=== PATIENT | male | born 1945 | race Caucasian/White ===

== ENCOUNTER → 2018-02-23 10:10 | Outpatient (POV) | payer MEDICARE, OTHER, SELFPAY | PROVIDERS: Visit Provider Dermatology | DX: Z00.00 Encounter for general adult medical examination without abnormal findings (principal) ==

== ENCOUNTER → 2018-03-16 10:10 | Outpatient (POV) | payer MEDICARE, OTHER, SELFPAY | PROVIDERS: Visit Provider Dermatology | DX: Z00.00 Encounter for general adult medical examination without abnormal findings (principal) ==

== ENCOUNTER → 2018-07-21 09:10 | Outpatient (CLI) | payer MEDICARE, OTHER, SELFPAY ==
--- NOTE | 2018-07-21 09:27 | US_ITS ---
US abdomen limited History:Right upper quadrant pain Ordering Physician:Romaine Cornejo MD Patient Age: 72 years Comparison:None Findings: Pancreas:Unremarkable. No obvious mass or abnormal fluid collection. No ductal dilatation Liver:Unremarkable. No obvious mass or abnormal fluid collection. No ductal dilatation Right Kidney:Unremarkable. Normal size and echogenicity. No hydronephrosis Gallbladder:No gallstones, gallbladder wall thickening, pericholecystic fluid, or biliary dilatation. There is a small hyperechoic focus within the lower aspect of the body of the gallbladder. There may be some posterior acoustical shadowing suggesting that this could be a small adherent stone versus a polyp. The gallbladder is distended measuring nearly 13 cm x 2.6 cm IMPRESSION: 1. Distended gallbladder with small polyp versus small adherent stone 2. Otherwise negative right upper quadrant ultrasound
== END ==
PROVIDERS: PCP Family Medicine; Visit Provider Family Medicine
DX: R10.11 Right upper quadrant pain (principal)
CPT/HCPCS: 76705

== ENCOUNTER → 2018-07-30 10:22 | Outpatient (CLI) | payer MEDICARE, OTHER, SELFPAY ==
--- NOTE | 2018-07-30 10:33 | NM_ITS ---
NM hepatobiliary w pharm HISTORY: Right upper quadrant pain, abnormal gallbladder ultrasound suggesting stone or polyp ITS.REASON: ABN GB IMAGING ORDERING PHYSICIAN: Romaine Cornejo MD PATIENT AGE: 72 years COMPARISON: 07/21/2018 DOSE: 7.69 MCI TC 99 Choletec 2.8MCG CCK INJ into LT ANT FINDINGS: Homogeneous activity is present within the hepatic parenchyma. Activity is present in the gallbladder by 45 minutes. Activity is present in the small bowel by 10 minutes. The gallbladder ejection fraction is calculated to be 89% The patient did not report pain or other symptoms during CCK infusion. IMPRESSION: Unremarkable hepatobiliary scan and gallbladder ejection fraction. No evidence of common or cystic duct obstruction with normal gallbladder ejection fraction
== END ==
PROVIDERS: PCP Family Medicine; Visit Provider Family Medicine
DX: R93.2 Abnormal findings on diagnostic imaging of liver and biliary tract (principal)
CPT/HCPCS: 78227; A9537; J2805

== ENCOUNTER → 2018-11-29 14:41 | Outpatient (CLI) | payer MEDICARE, OTHER, SELFPAY ==
--- NOTE | 2018-11-29 14:51 | XR_ITS ---
PROCEDURE: XR RIBS LT MIN 3V W CXR1V CLINICAL INDICATION: LT ANTERIOR CHEST WALL PAIN Fall with left anterior rib pain COMPARISON: LDCTLCAS LDCT FOR LUNG CA SCREEN from 06/17/2016 FINDINGS: There is cardiomegaly without failure. Nondisplaced fractures are present involving the anterior lateral aspect of the left 5th 6th and 7th ribs. There is mild atelectatic change in the lung bases. No obvious pneumothorax. IMPRESSION: Nondisplaced fractures of the left 5th 6th and 7th ribs anterior laterally Dictated by: Jose Cruz Donovan MD 11/29/2018 15:33 Electronically signed by Jose Cruz Donovan MD in [facility] 11/29/2018 15:33
== END ==
PROVIDERS: PCP Family Medicine; Visit Provider Family Medicine
DX: R07.89 Other chest pain (principal)
CPT/HCPCS: 71101

== ENCOUNTER → 2019-08-26 08:11 | Outpatient (CLI) | payer MEDICARE, OTHER, SELFPAY ==
--- NOTE | 2019-08-26 08:15 | US_ITS ---
PROCEDURE: US AORTA CLINICAL INDICATION: TOBACCO USE DISORDER COMPARISON: No exams were available for comparison FINDINGS: No evidence of abdominal aortic aneurysm. Proximal common iliacs have an unremarkable appearance. IMPRESSION: Negative for abdominal aortic aneurysm Dictated by: Jose Cruz Donovan MD 08/26/2019 18:39 Electronically signed by Jose Cruz Donovan MD in [facility] 08/26/2019 18:39
--- NOTE | 2019-08-26 08:51 | CA_ITS ---
APPROVED REPORT Tip Finisher: Ethel Paez RVT Laterality: Bilateral Study Quality: Good Indications: memory loss Risk Factors Hypertension: Hyperlipidemia Doppler Spectral Velocity Analysis ECA (R) 74.30/15.20 cm/s ECA (L) 61.60/12.70 cm/s dICA (R) 46.90/17.30 cm/s dICA (L) 47.20/18.30 cm/s Heather (R) 34.30/17.80 cm/s Heather (L) 37.00/20.00 cm/s pICA (R) 29.70/11.50 cm/s pICA (L) 35.40/16.90 cm/s dCCA (R) 50.40/14.40 cm/s dCCA (L) 46.50/16.00 cm/s pCCA (R) 59.40/20.20 cm/s pCCA (L) 78.90/18.20 cm/s Vert (R) 25.50/10.50 cm/s Vert (L) 37.00/16.70 cm/s ICA/CCA 0.93 ICA/CCA 1.01 Findings Study suggests less than 20% stenosis of the right and left internal cartoid arteries. Antegrade flow seen bilateral vertebral arteries. Conclusion No increased velocities to suggest hemodynamically significant stenosis in either internal carotid artery. Electronically signed by : Jose Cruz Donovan MD 08/26/2019 17:45:49
== END ==
PROVIDERS: PCP Family Medicine; Visit Provider Family Medicine
DX: Z13.6 Encounter for screening for cardiovascular disorders (principal); F17.200 Nicotine dependence, unspecified, uncomplicated; R41.3 Other amnesia; R09.89 Other specified symptoms and signs involving the circulatory and respiratory systems
CPT/HCPCS: 76770; 93880

== ENCOUNTER → 2020-07-09 14:28 | Outpatient (CLI) | payer MEDICARE, OTHER, SELFPAY ==
--- NOTE | 2020-07-09 14:35 | XR_ITS ---
PROCEDURE: XR CHEST 2V CLINICAL HISTORY: COUGH COMPARISON: CR XR RIBS LT MIN 3V W CXR1V from 11/29/2018 FINDINGS: There is cardiomegaly without failure. There is mild left apical pleural thickening Degenerative changes are present in the left shoulder. There has been a prior right humeral head prosthesis placement. Degenerative changes are present in the thoracic spine. IMPRESSION: Cardiomegaly. No change with no acute finding. Dictated by: Jose Cruz Donovan MD 07/09/2020 14:59 Jose Cruz Donovan MD in [facility] 07/09/2020 14:59
== END ==
PROVIDERS: PCP Family Medicine; Visit Provider Family Medicine
DX: R05 Cough (principal)
CPT/HCPCS: 71046

== ENCOUNTER → 2021-09-30 16:33 | Outpatient (CLI) | payer MEDICARE, OTHER, SELFPAY ==
--- NOTE | 2021-09-30 16:33 | MR_ITS ---
PROCEDURE INFORMATION: Exam: MR Lumbar Spine Without Contrast Exam date and time: 09/30/2021 5:01 PM Age: 76 years old Clinical indication: Low back pain; Prior surgery; Surgery date: 6+ months; Additional info: Back pain, fall, l1/l2 compression changes on xray. Prior back surgery in 83. Lbp. Bilateral leg solis, numbness, and tingling. Symptoms [id number]. TECHNIQUE: Imaging protocol: Magnetic resonance imaging of the lumbar spine without contrast. COMPARISON: NM Gallbladder EF 07/30/2018 11:54 AM FINDINGS: Bones/joints: Lumbarization of the S1 vertebra is present. There is marked bone marrow edema within the L1 and L2 vertebra. Fracture lines through both vertebra are also present. The findings are compatible with acute/subacute compression fractures. There is minimal L1 vertebral body height loss and mild L2 vertebral body height loss. No significant retropulsion into the spinal canal is present. There is straightening of the normal lumbar lordosis. Spinal cord: The conus medullaris terminates at the L2 level. There is no evidence of arachnoiditis or cauda equina compression. T11-T12: There is minimal diffuse circumferential disc bulging and moderate facet arthropathy. This is causing moderate left and severe right foraminal stenosis. There is no significant spinal canal stenosis. T12-L1: There is minimal diffuse circumferential disc bulging and mild facet arthropathy. This is causing mild bilateral foraminal stenosis. There is no significant spinal canal stenosis. L1-L2: There is moderate diffuse circumferential disc bulging, circumferential osteophytic ridging, mild facet arthropathy, thickening of the ligamentum flavum, prominent posterior epidural fat, and congenitally shortened pedicles. This is causing moderate spinal canal stenosis and moderate bilateral foraminal stenosis. L2-L3: There is mild diffuse circumferential disc bulging, circumferential osteophytic ridging, facet arthropathy, and congenitally shortened pedicles. This is causing mild spinal canal stenosis and moderate bilateral foraminal stenosis. L3-L4: There is mild diffuse circumferential disc bulging, circumferential osteophytic ridging, thickening of the ligamentum flavum, mild facet arthropathy, and congenitally shortened pedicles. This is causing mild spinal canal stenosis and moderate bilateral foraminal stenosis. L4-L5: There is disc dehydration, severe disc space narrowing, mild diffuse circumferential disc bulging, right foraminal and extraforaminal osteophytic ridging, thickening of the ligamentum flavum, and mild facet arthropathy. This is causing mild spinal canal stenosis, moderate narrowing of the subarticular recesses, moderate right foraminal stenosis, and mild left foraminal stenosis. L5-S1: There is disc dehydration, severe disc space narrowing, circumferential osteophytic ridging, and moderate facet arthropathy. A left hemilaminectomy defect is noted. There is no spinal canal stenosis. Severe left and moderate/severe right foraminal stenosis is present. Soft tissues: Subcutaneous edema is present in the lower back. Mild paraspinous edema is noted around the L1 and L2 levels. IMPRESSION: 1. Acute/subacute compression fractures at L1 and L2 2. Degenerative changes of the lumbar spine as discussed above
== END ==
PROVIDERS: PCP Family Medicine; Visit Provider Nurse Practitioner
DX: M54.50 Low back pain, unspecified (principal); W19.XXXA Unspecified fall, initial encounter; S32.010A Wedge compression fracture of first lumbar vertebra, initial encounter for closed fracture; S32.020A Wedge compression fracture of second lumbar vertebra, initial encounter for closed fracture
CPT/HCPCS: 72148; 76376

== ENCOUNTER → 2021-10-18 | Outpatient (CLI) | payer MEDICARE, OTHER, SELFPAY ==
[2021-10-18 15:19] LABS: Prothrombin Time 37.1 seconds (10.1-12.5)
== END ==
PROVIDERS: PCP Family Medicine; Visit Provider Family Medicine
DX: I48.20 Chronic atrial fibrillation, unspecified (principal); Z51.81 Encounter for therapeutic drug level monitoring; Z79.01 Long term (current) use of anticoagulants
CPT/HCPCS: 85610

== ENCOUNTER → 2021-11-18 13:13 | Outpatient (CLI) | payer MEDICARE, OTHER, SELFPAY ==
[2021-11-18 13:11] LABS: INR 1.68 (0.9-1.1); Prothrombin Time 17.6 seconds (10.1-12.5)
== END ==
PROVIDERS: PCP Family Medicine; Visit Provider Family Medicine
DX: Z79.01 Long term (current) use of anticoagulants (principal); Z51.81 Encounter for therapeutic drug level monitoring
CPT/HCPCS: 85610

== ENCOUNTER → 2021-12-23 13:20 | Outpatient (CLI) | payer MEDICARE, OTHER, SELFPAY ==
[2021-12-23 13:20] LABS: INR 1.29 (0.9-1.1); Prothrombin Time 13.7 seconds (10.1-12.5)
[2021-12-23 14:20] LABS: Alanine Aminotransferase 8 U/L (12-78); Albumin Level 3.5 g/dl (3.5-5.0); Albumin/Globulin Ratio 1.5 (1.1-1.8); Alkaline Phosphatase 95 U/L (38-126); Anion Gap 15.4 mEq/L (5-15); Aspartate Amino Transferase 21 U/L (17-59); Bilirubin,Total 0.8 mg/dl (0.2-1.3); Blood Urea Nitrogen 17 mg/dl (9-20); Calcium 9.5 mg/dl (8.4-10.2); Carbon Dioxide 29 mmol/L (22.0-30.0); Chloride 100 mmol/L (98-107); Estimated Glomerular Filt Rate 162 ml/min (>60); GFR (African American) 196 ML/MIN (>60); Globulin 2.3 g/dL (1.3-3.2); Glucose 86 mg/dl (74-100); Potassium 4.4 mmoL/L (3.5-5.1); Sodium 140 mmol/L (136-145); Total Protein,Serum 5.8 g/dl (6.3-8.2)
[2021-12-23 14:49] LABS: Prostate Specific Ag Screen 1.8 ng/ml (0.0-4.0)
== END ==
PROVIDERS: PCP Family Medicine; Visit Provider Family Medicine
DX: Z79.01 Long term (current) use of anticoagulants (principal); Z12.5 Encounter for screening for malignant neoplasm of prostate; Z51.81 Encounter for therapeutic drug level monitoring
CPT/HCPCS: 80053; 85610; G0103

== ENCOUNTER → 2022-01-20 12:40 | Outpatient (CLI) | payer MEDICARE, OTHER, SELFPAY ==
[2022-01-20 13:55] LABS: INR 1.74 (0.9-1.1); Prothrombin Time 18.2 seconds (10.1-12.5)
== END ==
PROVIDERS: PCP Family Medicine; Visit Provider Family Medicine
DX: I48.20 Chronic atrial fibrillation, unspecified (principal); Z51.81 Encounter for therapeutic drug level monitoring; Z79.01 Long term (current) use of anticoagulants
CPT/HCPCS: 85610

== ENCOUNTER → 2022-02-21 13:10 | Outpatient (CLI) | payer MEDICARE, OTHER, SELFPAY ==
[2022-02-21 17:46] LABS: Basophils % 0.1 % (0.1-2.0); Eosinophils % 0.1 % (0.1-12.0); Hematocrit 46.9 % (42.0-52.0); Hemoglobin 14.5 g/dL (14.1-18.0); Lymphocytes # 0.9 K/mm3 (0.7-4.5); Lymphocytes % 4.8 % (10-50); Mean Corpuscular Hemoglobin 29.6 pg (27.0-31.2); Mean Corpuscular Volume 95.4 fl (80-94); Mean Platelet Volume 9.3 fl (7.4-10.4); Monocytes # 0.5 K/mm3 (0.1-1.0); Monocytes % 2.9 % (1.7-9.3); Neutrophils # 16.5 K/mm3 (1.8-7.8); Neutrophils % 92.1 % (37.0-80.0); Platelet Count 370 K/mm3 (142-424); Red Blood Count 4.91 M/mm3 (4.60-6.20); Red Cell Distribution Width 13.3 % (11.5-17.5); White Blood Count 17.9 K/mm3 (4.8-10.8)
[2022-02-21 17:48] LABS: MANUAL DIFFERENTIAL MANUAL DIFFERENTIAL (MANUAL DIFF)
[2022-02-21 19:20] LABS: Lymphocytes % 4 % (10-50); Neutrophils % 90 % (42-76); Platelet Estimate Normal; RBC Morphology Normal; Total Cells Counted 100
[2022-02-21 20:18] LABS: INR > 8.00 (0.9-1.1); Prothrombin Time > 90.0 seconds (10.1-12.5)
== END ==
PROVIDERS: PCP Family Medicine; Visit Provider Family Medicine
DX: T84.59XD Infection and inflammatory reaction due to other internal joint prosthesis, subsequent encounter (principal); Z79.01 Long term (current) use of anticoagulants
CPT/HCPCS: 85007; 85025; 85610

== ENCOUNTER → 2022-02-28 11:00 | Outpatient (CLI) | payer MEDICARE, OTHER, SELFPAY ==
[2022-02-28 18:40] LABS: Alanine Aminotransferase 15 U/L (12-78); Albumin Level 3.4 g/dl (3.5-5.0); Albumin/Globulin Ratio 1.4 (1.1-1.8); Alkaline Phosphatase 108 U/L (38-126); Amylase 38 U/L (30-110); Anion Gap 7.8 mEq/L (5-15); Aspartate Amino Transferase 26 U/L (17-59); Bilirubin,Total 1.3 mg/dl (0.2-1.3); Blood Urea Nitrogen 20 mg/dl (9-20); Calcium 8.7 mg/dl (8.4-10.2); Carbon Dioxide 32 mmol/L (22.0-30.0); Chloride 103 mmol/L (98-107); Estimated Glomerular Filt Rate 131 ml/min (>60); GFR (African American) 159 ML/MIN (>60); Globulin 2.5 g/dL (1.3-3.2); Glucose 90 mg/dl (74-100); Lipase 30 U/L (23-300); Potassium 4.8 mmoL/L (3.5-5.1); Sodium 138 mmol/L (136-145); Total Protein,Serum 5.9 g/dl (6.3-8.2)
[2022-02-28 19:20] LABS: INR 1.16 (0.9-1.1); Prothrombin Time 12.4 seconds (10.1-12.5)
== END ==
PROVIDERS: PCP Family Medicine; Visit Provider Family Medicine
DX: K86.9 Disease of pancreas, unspecified (principal); R79.1 Abnormal coagulation profile
CPT/HCPCS: 80053; 82150; 83690; 85610

== ENCOUNTER 2024-01-30 20:57 | Emergency (ER) | payer MEDICARE, OTHER, SELFPAY ==
[2024-01-30 20:57] VITALS: BP 114/81; PULSE 101; RESP 20; TEMP 36.7; O2SAT 94; BMI 31.1
--- NOTE | 2024-01-30 21:00 | PC.NURSE ---
patient arrived to the ED following a fall and head injury. pt able to follow all commands and orientation questions. pt A&Ox4
--- NOTE | 2024-01-30 21:09 | CT_ITS ---
PROCEDURE INFORMATION: Exam: CT Cervical Spine Without Contrast Exam date and time: 01/30/2024 9:54 PM Age: 78 years old Clinical indication: Injury or trauma; Fall; Blunt trauma; Additional info: Fall, head trauma, neck pain TECHNIQUE: Imaging protocol: Computed tomography of the cervical spine without contrast. Radiation optimization: All CT scans at this facility use at least one of these dose optimization techniques: automated exposure control; mA and/or kV adjustment per patient size (includes targeted exams where dose is matched to clinical indication); or iterative reconstruction. COMPARISON: 1. CT CERVICAL SPINE WO CON 01/30/2024 9:[address] HEAD/BRAIN WO CON 01/30/2024 9:46 PM FINDINGS: Bones: There is diffuse osseous demineralization. 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 The cervical spine shows relatively preserved alignment of the vertebral bodies with no evidence of acute fractures or dislocations. However, age-related degenerative changes are observed, including mild disc space narrowing and osteophyte formation at multiple levels. These findings are consistent with age related degenerative disease. Lungs: Lung apices are normal. Vasculature: There are atherosclerotic calcifications of the carotid bulbs bilaterally. Soft tissues: See Bones finding. IMPRESSION: Multilevel degenerative change without acute injury identified.
--- NOTE | 2024-01-30 21:09 | XR_ITS ---
PROCEDURE INFORMATION: Exam: XR Pelvis Exam date and time: 01/30/2024 9:59 PM Age: 78 years old Clinical indication: Injury or trauma; Fall; Blunt trauma (contusions or hematomas); Right; Pelvic region TECHNIQUE: Imaging protocol: Radiologic exam of the pelvis. Views: 1 or 2 view. COMPARISON: CT ABDOMEN PELVIS WO CON 01/30/2024 9:59 PM FINDINGS: Bones/joints: Unremarkable. No acute fracture. Soft tissues: Unremarkable. IMPRESSION: No acute findings.
--- NOTE | 2024-01-30 21:09 | ECG_ITS ---
APPROVED REPORT Exam: Resting ECG HR:97 bpm ECG Measurements Heart Rate 97 AXES QRSd 94 QRS 50 QT 349 T 36 QTc 403 Conclusion ATRIAL FIBRILLATION WITH ABERRANT CONDUCTION OR VENTRICULAR PREMATURE COMPLEXES ABNORMAL RHYTHM ECG UNCONFIRMED REPORT Electronically signed by : TOM GALINDO, 02/01/2024 23:50:59
--- NOTE | 2024-01-30 21:09 | XR_ITS ---
PROCEDURE INFORMATION: Exam: XR Right Shoulder Exam date and time: 01/30/2024 9:59 PM Age: 78 years old Clinical indication: Injury or trauma; Fall; Blunt trauma (contusions or hematomas); Shoulder; Right; Additional info: Fall, right shoulder pain TECHNIQUE: Imaging protocol: Radiologic exam of the right shoulder. Views: 2 or more views. COMPARISON: CR XR SHOULDER RT MIN 2V 01/30/2024 9:59 PM FINDINGS: Bones/joints: Right shoulder arthroplasty. No definite acute fracture. Osteitis along the humerus. Antibiotic beads along the lateral humeral diaphysis. Soft tissues: Prominent soft tissue swelling of the arm and axilla. IMPRESSION: No acute fracture.
--- NOTE | 2024-01-30 21:09 | CT_ITS ---
PROCEDURE INFORMATION: Exam: CT Head Without Contrast Exam date and time: 01/30/2024 9:46 PM Age: 78 years old Clinical indication: Injury or trauma; Fall; Blunt trauma (contusions or hematomas); Additional info: Fall, head trauma, on warfarin TECHNIQUE: Imaging protocol: Computed tomography of the head without contrast. Radiation optimization: All CT scans at this facility use at least one of these dose optimization techniques: automated exposure control; mA and/or kV adjustment per patient size (includes targeted exams where dose is matched to clinical indication); or iterative reconstruction. COMPARISON: CT HEAD/BRAIN WO CON 01/30/2024 9:46 PM FINDINGS: Brain: There is a tiny focus of hyperdensity in the left frontal lobe (image 49 series 3) which could reflect a tiny contusion versus artifact. Cerebral ventricles: No ventriculomegaly. Paranasal sinuses: Visualized sinuses are unremarkable. No fluid levels. Mastoid air cells: Visualized mastoid air cells are well aerated. Bones: Unremarkable. No acute fracture. Soft tissues: Moderate soft tissue swelling along the left frontal calvarium. IMPRESSION: 1. Moderate soft tissue swelling along the left frontal calvarium. 2. There is a tiny focus of hyperdensity in the left frontal lobe (image 49 series 3) which could reflect a tiny contusion versus artifact.
--- NOTE | 2024-01-30 21:09 | XR_ITS ---
PROCEDURE INFORMATION: Exam: XR Chest Exam date and time: 01/30/2024 9:59 PM Age: 78 years old Clinical indication: Injury or trauma; Fall; Blunt trauma (contusions or hematomas); Additional info: Fall, right shoulder/chest pain TECHNIQUE: Imaging protocol: Radiologic exam of the chest. Views: 1 view. COMPARISON: CT CHEST WO CON 01/30/2024 9:56 PM FINDINGS: Lungs: Unremarkable. No consolidation. Pleural spaces: Unremarkable. No pleural effusion. No pneumothorax. Heart/Mediastinum: Unremarkable. No cardiomegaly. Bones/joints: Right shoulder arthroplasty. No acute fracture. IMPRESSION: No acute abnormality.
--- NOTE | 2024-01-30 21:09 | XR_ITS ---
PROCEDURE INFORMATION: Exam: XR Left Elbow Exam date and time: 01/30/2024 9:59 PM Age: 78 years old Clinical indication: Injury or trauma; Fall; Blunt trauma (contusions or hematomas); Elbow; Left; Additional info: Fall, left elbow pain TECHNIQUE: Imaging protocol: Radiologic exam of the left elbow. Views: 1 or 2 views. COMPARISON: No relevant prior studies available. FINDINGS: Bones/joints: Normal. Soft tissues: Mild soft tissue swelling of the elbow. IMPRESSION: No acute fracture.
--- NOTE | 2024-01-30 21:14 | HMH.EDGENADL ---
Discharge Plan Disposition Patient Disposition: Xfer Short-Term Hosp Condition: Serious Chief Complaint: Fall Prescriptions Prescriptions: No Action prednisone 5 mg tablet 5 mg PO DAILY Qty: 30 0RF aspirin [Anna Chewable Aspirin] 81 mg tablet,chewable 81 mg PO DAILY Qty: 30 2RF nystatin-triamcinolone 100,000-0.1 unit/g-% cream 1 applic topical BID Qty: 60 2RF omeprazole 40 mg capsule,delayed release(DR/EC) 40 mg PO DAILY Qty: 30 2RF acetaminophen-codeine 300-30 mg tablet 1 tab PO furosemide 40 mg tablet 40 mg PO DAILY Patient Comments: TAKE 1 TABLET BY MOUTH ONCE DAILY. hydrocodone-acetaminophen 5-325 mg tablet 1 tab PO Q6H PRN (Reason: pain) Patient Comments: TAKE 1 TABLET BY MOUTH EVERY 6 HOURS NEEDED FOR CHRONIC PAIN (G89.29) FOR UP TO 30 DAYS. warfarin 5 mg tablet 5 mg PO DAILY Qty: 120 4RF cefazolin in 0.9% sod chloride 2 gram/100 mL solution IV docusate sodium 100 mg capsule 100 mg PO BID bisacodyl [Dulcolax (bisacodyl)] 5 mg tablet,delayed release (DR/EC) 10 mg PO DAILY sennosides-docusate sodium [Senna-Time S] 8.6-50 mg tablet 2 tab-cap PO DAILY meclizine 25 mg tablet 25 mg PO TID Qty: 90 0RF diphenhydramine HCl [Benadryl] 25 mg capsule 25 mg PO ONCE Qty: 1 0RF Rx Instructions: Take 25 mg [address] scan. trazodone 150 mg tablet 150 mg PO HS Qty: 30 5RF Rx Instructions: TAKE 1 TABLET BY MOUTH AT BEDTIME metoprolol tartrate 50 mg tablet 50 mg PO BID Qty: 60 4RF gabapentin 300 mg capsule 300 mg PO BID Qty: 60 3RF paroxetine HCl 40 mg tablet See Rx Instructions .ROUTE .COMPLEX Qty: 30 1RF Dose Instruction: Take 1 Tablet by mouth once daily. Rx Instructions: Take 1 Tablet by mouth once daily. Referrals Follow up/Referrals: Provider,Referral, MD [Primary Care Provider] - See instructions Clinical Impressions Clinical Impression: Cerebral contusion, Supratherapeutic INR, Multiple fractures of ribs Stand Alone Forms Stand Alone Forms: Transfer Record - ED Print Language Print Language: Maltese Discharge ED Provider: Oj Auguste General Adult HPI <Oj Auguste MD - Last Filed: 01/30/24 23:48> General Chief complaint: Fall Stated complaint: Fall Time Seen by Provider: 01/30/24 21:01 Mode of Arrival: EMS Source of Information: Patient and EMS Limitations: No Limitations Description of Symptoms (Recalled from ER Triage Doc. by RN): pt reports he was walking out of the store when he lost his balance and fell onto the [employer] parking lot. pt reports he struck his face and his right shoulder. pt has a hematoma and a laceration to the left side of his face. pt reports no LOC. pt reports use of warfarin History of Present Illness HPI narrative: Jerry Hammond is a 78-year-old male with a past medical history of A-fib on warfarin, right shoulder replacement, who presents to the emergency department via EMS after a fall. Patient states that he was walking out of the store when he lost his footing and accelerated forward while walking until he fell face forward, hitting his face on the asphalt. He denies any loss of consciousness. He states that he is having to his forehead and left face and has lacerations to this area. He is also having some neck pain. He reports chronic lower back pain that is unchanged from his baseline. He notes a skin tear to his left elbow and some pain in the area as well as right shoulder pain. He denies any preceding chest pain, shortness of breath, palpitations, dizziness and has no focal weakness. Patient does not know when his last tetanus shot was Related Data Home Medications ?Medication ?Instructions ?Recorded ?Confirmed bisacodyl 5 mg tablet,delayed 10 mg PO DAILY 08/09/21 04/08/22 release (Dulcolax (bisacodyl)) cefazolin 2 gram/100 mL in 0.9 % ml IV 08/09/21 04/08/22 sodium chloride intravenous solution docusate sodium 100 mg capsule 100 mg PO BID 08/09/21 04/08/22 sennosides 8.6 mg-docusate sodium 2 tab-cap PO DAILY 08/09/21 04/08/22 50 mg tablet (Senna-Time S) acetaminophen 300 mg-codeine 30 mg 1 tab PO 11/18/21 04/08/22 tablet furosemide 40 mg tablet 40 mg PO DAILY 11/18/21 04/08/22 hydrocodone 5 mg-acetaminophen 325 1 tab PO Q6H PRN pain 03/14/22 04/08/22 mg tablet Previous Rx's ?Medication ?Instructions ?Recorded omeprazole 40 mg capsule,delayed 40 mg PO DAILY #30 caps 10/28/21 release meclizine 25 mg tablet 25 mg PO TID #90 tabs 11/25/21 diphenhydramine HCl 25 mg capsule 25 mg PO ONCE #1 cap 02/11/22 (Benadryl) trazodone 150 mg tablet 150 mg PO HS #30 tabs 02/13/22 metoprolol tartrate 50 mg tablet 50 mg PO BID #60 tabs 02/21/22 aspirin 81 mg chewable tablet 81 mg PO DAILY #30 tabs 03/07/22 (Anna Chewable Low Dose Aspirin) prednisone 5 mg tablet 5 mg PO DAILY #30 tabs 03/07/22 nystatin-triamcinolone 100,000 1 applic topical BID intertrigo 03/21/22 unit/g-0.1 % topical cream #60 grams warfarin 5 mg tablet 5 mg PO DAILY atrial fibrillation 04/08/22 #120 tabs gabapentin 300 mg capsule 300 mg PO BID #60 caps 05/30/22 paroxetine HCl 40 mg tablet See Rx Instructions .Route 01/05/24 .COMPLEX #30 tabs Allergies Allergy/AdvReac Type Severity Reaction Status Date / Time From FELDENE Allergy Intermediate I-HIVES Uncoded 04/08/22 14:36 From ZITHROMAX Z PACK Allergy Intermediate I-RASH Uncoded 04/08/22 14:36 IODINE Allergy Intermediate I-RASH Uncoded 04/08/22 14:36 [facility] <Oj Auguste MD - Last Filed: 01/30/24 23:48> [facility] Disclaimer: The information contained in this section may have been updated after the patient was seen, as this information can be updated by other users. 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 Differential noted. Pancreatic mass Periprosthetic fracture around internal prosthetic right shoulder joint, subsequent encounter Unilateral primary osteoarthritis, unspecified knee Unspecified atrial fibrillation Surgical History History of shoulder surgery Family History Other Cancer Diabetes Hypertension Social History Smoking Status: Current every day smoker alcohol intake: never current occupational status: retired Travel in the last 8 weeks: None Other Medical History Have you received the Pneumonia Vaccine: No <Oj Auguste MD - Last Filed: 01/30/24 23:48> ROS Obtained: Yes Systems reviewed as appropriate & no additional complaints except as documented Physical Exam <Oj Auguste MD - Last Filed: 01/30/24 23:48> General General appearance: alert and in no apparent distress Comment: Speaking in full sentences, alert and oriented x 3 Head Head exam: other (Skin tear to the left forehead with small underlying hematoma. Small 1 cm laceration to the left protestant. Midface is stable. No depressed skull fractures.) Eye Eye exam: Present normal appearance, PERRL and periorbital tenderness ENT ENT exam: Present normal external ear exam and other (Teeth align appropriately) Neck Neck exam: Present other (Cervical collar in place. Tenderness palpation to the mid upper cervical spine) Chest Chest inspection: Present symmetric chest wall rise and tenderness (Mid chest wall tenderness without deformity) Respiratory Respiratory exam: Present normal lung sounds bilaterally; Absent respiratory distress or wheezes Cardiovascular Cardiovascular exam: Present regular rate and normal rhythm Abdominal Exam Abdominal exam: Present soft and tenderness (Right upper quadrant); Absent distention or guarding Abdominal tenderness: Present RUQ exam: Present deferred Extremities Exam Extremities exam: Present normal inspection Back Exam Back exam: Present normal inspection and other (Healing abrasion over the mid thoracic back (patient states that this occurred approximately 1 month ago). Tenderness palpation over the mid cervical spine without step-off or deformity.) Neurological Exam Neurological exam: Present alert, oriented X3 and other (Moving all extremities, following commands appropriately, alert and oriented x 3) Psychiatric Psychiatric exam: Present normal affect Skin Skin exam: Present warm, dry and other (Skin tear over the dorsum of the right hand, left elbow and 2 small lacerations to the face.) Medical Decision Making <Oj Auguste MD - Last Filed: 01/30/24 23:48> Medical Records Screening: Per USPSTF and CDC recommendations, given the prevalence of disease in our region, it is our hospital?s policy to screen for HIV and viral Hepatitis for all patients aged 18 and over and those with ongoing risk factors. Filiberto Inquiry Pt receiving controlled substance: No Vital Signs: 01/30/24 20:57 01/30/24 21:31 01/30/24 22:30 Temperature 98.0 F Temperature Source Oral Pulse Rate 45 L Pulse Rate [Right] 101 H Respiratory Rate 20 12 14 Blood Pressure 115/78 120/83 Blood Pressure [Right Arm] 114/81 Blood Pressure Mean [Right Arm] 92 02 Sat by Pulse Oximetry 94 L 80 L Oxygen Delivery Method Room Air 01/30/24 23:00 Temperature Temperature Source Pulse Rate Pulse Rate [Right] Respiratory Rate 21 Blood Pressure 110/80 Blood Pressure [Right Arm] Blood Pressure Mean [Right Arm] 02 Sat by Pulse Oximetry Oxygen Delivery Method Lab Data Lab Results 01/30/24 23:20: WBC 8.8, RBC 4.96, Hgb 16.1, Hct 49.4, MCV 99.7 H, MCH 32.6 H, MCHC 32.6, RDW 13.2, Plt Count 190, MPV 8.3, Neut % (Auto) 76.1, Lymph % (Auto) 15.1, [place] % (Auto) 6.4, Eos % (Auto) 1.2, Baso % (Auto) 1.1, Neut # (Auto) 6.7, Lymph # (Auto) 1.3, [place] # (Auto) 0.6, Eos # (Auto) 0.1, Baso # (Auto) 0.1, PT 36.7 H, INR 3.73 H, Troponin I 0.01, Lipase 49 01/30/24 23:20 Orders (Tests/Meds): ED MEDICATIONS Generic Name Dose Route Start Last Admin Trade Name Freq PRN Reason Stop Dose Admin Phytonadione 10 mg/ Sodium 51 mls @ 100 mls/hr 01/30/24 23:53 01/30/24 23:58 Chloride IV 01/31/24 00:23 100 mls/hr ONCE ONE Administration Discontinued Medications Generic Name Dose Route Start Last Admin Trade Name Miki PRN Reason Stop Dose Admin Morphine Sulfate 2 mg 01/30/24 21:09 01/30/24 21:17 Morphine 2mg/Ml Syringe IV 01/30/24 21:10 2 mg ONCE ONE Administration Tetanus/Reduced Diphtheria/Acell Pertussis 0.5 ml 01/30/24 21:09 01/30/24 21:17 Tet/Diphth/Pert-Adult 0.5ml Syringe IM 01/30/24 21:10 0.5 ml .ONCE ONE Administration ORDERS Category Date Time Status CT abdomen pelvis wo con Stat Cat Scan 01/30/24 21:[address] cervical spine wo con Stat Cat Scan 01/30/24 21:[address] chest wo con Stat Cat Scan 01/30/24 21:[address] head/brain wo con Stat Cat Scan 01/30/24 21:09 Completed CXR --portable [XR chest portable] Stat Exams 01/30/24 21:09 Completed Elbow XR left 2 views [XR elbow LT 2V] Stat Exams 01/30/24 21:09 Completed Pelvis XR 1-2 views [XR pelvis 1-2V] Stat Exams 01/30/24 21:09 Completed Shoulder XR right miminum 2 views [XR shoulder RT min Exams 01/30/24 21:09 Completed 2V] Stat CBC w/Auto Diff [Complete Blood Count Auto Diff] Stat Lab 01/30/24 23:20 Completed CMP [Comprehensive Metabolic Panel] Stat Lab 01/30/24 23:20 Results Free T4 (Free Thyroxine) Stat Lab 01/30/24 23:20 Received HIV (1&2) Antibody Rapid Stat Lab 01/30/24 23:30 Received Hep C Ab with Reflex to RNA Stat Lab 01/30/24 23:30 Received Lipase Stat Lab 01/30/24 23:20 Completed PT INR [Prothrombin Time INR] Stat Lab 01/30/24 23:20 Completed TSH [Thyroid Stimulating Hormone] Stat Lab 01/30/24 23:20 Results Troponin I Q3H Lab 01/31/24 00:15 Ordered Troponin I Q3H Lab 01/31/24 03:15 Ordered Troponin I Stat Lab 01/30/24 23:20 Results EKG Request [ECG Request] Stat Y 01/30/24 21:09 Ordered Medical Decision Narrative: Jerry Hammond is a 78-year-old male with a past medical history of A-fib on warfarin who presents to the emergency department after a fall. Reportedly patient was walking out of a store when he fell face forward after losing his balance, hitting his face on the concrete. Negative loss of consciousness. Patient is complaining of right shoulder pain, facial pain and neck pain. Patient noted to have 2 skin tears/lacerations to his forehead and left face. Hemostatic at this time. Skin tears to his left elbow and right hand. Patient does have some tenderness in the mid cervical spine without deformity or step-off. He has some right upper quadrant tenderness as well as midsternal tenderness. Neuro exam is unremarkable. Pelvis is stable. Patient is in a c-collar at this time. Patient is hemodynamically stable, mildly tachycardic with a heart rate of 101 bpm, afebrile and breathing comfortably on room air with oxygen saturation at 94% SpO2 Diagnosis includes, but is not limited to: Intracranial hemorrhage, cervical spine fracture, rib fracture, shoulder fracture/dislocation, spinal fracture, intra-abdominal pathology such as a liver laceration or splenic laceration, blunt cardiac injury, elbow fracture, among others. Patient's workup in the emergency department included: CT head without contrast, CT C-spine without contrast, CT abdomen pelvis without contrast, CT chest without contrast (patient breaks out into a rash with IV contrast), EKG, troponin, lipase, CBC, CMP, right shoulder x-ray, left elbow x-ray, chest x-ray and pelvis x-ray. CT head and CT C-spine interpreted by me personally. Patient noted to have a small area in the left frontal lobe that could be abrasives sales representative of a contusion versus small bleed. No cervical spine fracture malalignment. labs pending at this time. Patient's care handed off to the oncoming physician, Dr. Terrazas, pending completion of his workup <Fantasma Terrazas MD - Last Filed: 01/31/24 00:12> Vital Signs: 01/30/24 20:57 01/30/24 21:31 01/30/24 22:30 Temperature 98.0 F Temperature Source Oral Pulse Rate 45 L Pulse Rate [Right] 101 H Respiratory Rate 20 12 14 Blood Pressure 115/78 120/83 Blood Pressure [Right Arm] 114/81 Blood Pressure Mean [Right Arm] 92 02 Sat by Pulse Oximetry 94 L 80 L Oxygen Delivery Method Room Air 01/30/24 23:00 Temperature Temperature Source Pulse Rate Pulse Rate [Right] Respiratory Rate 21 Blood Pressure 110/80 Blood Pressure [Right Arm] Blood Pressure Mean [Right Arm] 02 Sat by Pulse Oximetry Oxygen Delivery Method Lab Data Lab Results 01/30/24 23:20: WBC 8.8, RBC 4.96, Hgb 16.1, Hct 49.4, MCV 99.7 H, MCH 32.6 H, MCHC 32.6, RDW 13.2, Plt Count 190, MPV 8.3, Neut % (Auto) 76.1, Lymph % (Auto) 15.1, [place] % (Auto) 6.4, Eos % (Auto) 1.2, Baso % (Auto) 1.1, Neut # (Auto) 6.7, Lymph # (Auto) 1.3, [place] # (Auto) 0.6, Eos # (Auto) 0.1, Baso # (Auto) 0.1, PT 36.7 H, INR 3.73 H, Troponin I 0.01, Lipase 49 Orders (Tests/Meds): ED MEDICATIONS Generic Name Dose Route Start Last Admin Trade Name Freq PRN Reason Stop Dose Admin Phytonadione 10 mg/ Sodium 51 mls @ 100 mls/hr 01/30/24 23:53 01/30/24 23:58 Chloride IV 01/31/24 00:23 100 mls/hr ONCE ONE Administration Discontinued Medications Generic Name Dose Route Start Last Admin Trade Name Freq PRN Reason Stop Dose Admin Morphine Sulfate 2 mg 01/30/24 21:09 01/30/24 21:17 Morphine 2mg/Ml Syringe IV 01/30/24 21:10 2 mg ONCE ONE Administration Tetanus/Reduced Diphtheria/Acell Pertussis 0.5 ml 01/30/24 21:09 01/30/24 21:17 Tet/Diphth/Pert-Adult 0.5ml Syringe IM 01/30/24 21:10 0.5 ml .ONCE ONE Administration ORDERS Category Date Time Status CT abdomen pelvis wo con Stat Cat Scan 01/30/24 21:[address] cervical spine wo con Stat Cat Scan 01/30/24 21:[address] chest wo con Stat Cat Scan 01/30/24 21:[address] head/brain wo con Stat Cat Scan 01/30/24 21:09 Completed CXR --portable [XR chest portable] Stat Exams 01/30/24 21:09 Completed Elbow XR left 2 views [XR elbow LT 2V] Stat Exams 01/30/24 21:09 Completed Pelvis XR 1-2 views [XR pelvis 1-2V] Stat Exams 01/30/24 21:09 Completed Shoulder XR right miminum 2 views [XR shoulder RT min Exams 01/30/24 21:09 Completed 2V] Stat CBC w/Auto Diff [Complete Blood Count Auto Diff] Stat Lab 01/30/24 23:20 Completed CMP [Comprehensive Metabolic Panel] Stat Lab 01/30/24 23:20 Results Free T4 (Free Thyroxine) Stat Lab 01/30/24 23:20 Received HIV (1&2) Antibody Rapid Stat Lab 01/30/24 23:30 Received Hep C Ab with Reflex to RNA Stat Lab 01/30/24 23:30 Received Lipase Stat Lab 01/30/24 23:20 Completed PT INR [Prothrombin Time INR] Stat Lab 01/30/24 23:20 Completed TSH [Thyroid Stimulating Hormone] Stat Lab 01/30/24 23:20 Results Troponin I Q3H Lab 01/31/24 00:15 Ordered Troponin I Q3H Lab 01/31/24 03:15 Ordered Troponin I Stat Lab 01/30/24 23:20 Results EKG Request [ECG Request] Stat Y 01/30/24 21:09 Ordered Medical Decision Narrative: Jerry Hammond is a 78-year-old male with a past medical history of A-fib on warfarin who presents to the emergency department after a fall. Reportedly patient was walking out of a store when he fell face forward after losing his balance, hitting his face on the concrete. Negative loss of consciousness. Patient is complaining of right shoulder pain, facial pain and neck pain. Patient noted to have 2 skin tears/lacerations to his forehead and left face. Hemostatic at this time. Skin tears to his left elbow and right hand. Patient does have some tenderness in the mid cervical spine without deformity or step-off. He has some right upper quadrant tenderness as well as midsternal tenderness. Neuro exam is unremarkable. Pelvis is stable. Patient is in a c-collar at this time. Patient is hemodynamically stable, mildly tachycardic with a heart rate of 101 bpm, afebrile and breathing comfortably on room air with oxygen saturation at 94% SpO2 Diagnosis includes, but is not limited to: Intracranial hemorrhage, cervical spine fracture, rib fracture, shoulder fracture/dislocation, spinal fracture, intra-abdominal pathology such as a liver laceration or splenic laceration, blunt cardiac injury, elbow fracture, among others. Patient's workup in the emergency department included: CT head without contrast, CT C-spine without contrast, CT abdomen pelvis without contrast, CT chest without contrast (patient breaks out into a rash with IV contrast), EKG, troponin, lipase, CBC, CMP, right shoulder x-ray, left elbow x-ray, chest x-ray and pelvis x-ray. CT head and CT C-spine interpreted by me personally. Patient noted to have a small area in the left frontal lobe that could be abrasives sales representative of a contusion versus small bleed. No cervical spine fracture malalignment. labs pending at this time. Patient's care handed off to the oncoming physician, Dr. Terrazas, pending completion of his workup Terrazas: Upon my assumption of care patient is stable. Dr. Auguste repaired the face lacerations. CTs were all personally interpreted, there does appear to be a small area of cerebral contusion versus very small focus of bleed in the left frontal lobe which is consistent with patient's obvious external injuries. Unfortunately c-collar was unable to be cleared despite negative C-spine imaging because patient still has midline pain with range of motion testing. C-collar remains in place, no neurologic deficits at this time. CT chest with multiple rib fractures identified, no pneumothorax appreciated, see radiology read for final interpretation. CT abdomen pelvis without acute traumatic injury. See radiology reads. X-ray imaging negative. Patient has been treated with morphine, Tdap booster. Rib injury guideline score 7. Patient was only saturating in the upper 80s, he was placed on nasal cannula for oxygen support. Unfortunately due to his multiple injuries he requires transfer. His INR also resulted supratherapeutic at 3.73. Patient requested to be transferred to [facility] over [facility], I believe this is reasonable. I contacted [facility] and spoke with Dr. Martínez with the trauma team as well as Dr. Warren with the ER. They recommend 10 mg vitamin K for treatment of supratherapeutic INR and accepted the patient for ED to ED transfer for his poly-traumatic injuries. Patient requires ALS transfer in order to continue oxygen as well as vitamin K. Patient and family agreeable to the plan for transfer. Patient transferred in serious but stable condition. Procedures <Oj Auguste MD - Last Filed: 01/30/24 23:48> Laceration Laceration 1: Site: face Side (If applicable): left Size (cm): 2 Description: linear Pre-repair: irrigated extensively Skin layer closed with: Dermabond Critical Care <Oj Auguste MD - Last Filed: 01/30/24 23:48> Critical Care Time Critical Care Time: No <Fantasma Terrazas MD - Last Filed: 01/31/24 00:12> Critical Care Time Critical Care Time: Yes Attestation: On 01/30/24, the high probability of a clinically significant, sudden or life threatening deterioration of the following system(s) (neuro, pulmonary) required my full and direct attention, intervention and personal management. The time I documented below is in addition to time spent performing reported procedures but includes the following listed in this critical care notation. Total Time Total Critical Care Time: 35
[2024-01-30] MEDS: MORPHINE 2MG/ML SYRINGE 2 MG IV (21:17)
[2024-01-30] MEDS: TET/DIPHTH/PERT-ADULT 0.5ML SYRINGE 0.5 ML IM (21:17)
[2024-01-30 21:31] VITALS: BP 115/78; RESP 12
--- NOTE | 2024-01-30 21:48 | CT_ITS ---
PROCEDURE INFORMATION: Exam: CT Chest Without Contrast; Diagnostic Exam date and time: 01/30/2024 9:56 PM Age: 78 years old Clinical indication: Injury or trauma; Fall; Blunt trauma (contusions or hematomas); Additional info: Fall, mid sternal pain TECHNIQUE: Imaging protocol: Diagnostic computed tomography of the chest without contrast. Radiation optimization: All CT scans at this facility use at least one of these dose optimization techniques: automated exposure control; mA and/or kV adjustment per patient size (includes targeted exams where dose is matched to clinical indication); or iterative reconstruction. COMPARISON: CR XR CHEST 2V 07/09/2020 2:43 PM FINDINGS: Lungs: Left lower lobe linear atelectasis. Pleural spaces: Unremarkable. No pneumothorax. No pleural effusion. Heart: Mitral valve calcifications. Coronary arteries: Severe coronary artery calcifications. Lymph nodes: Unremarkable. No enlarged lymph nodes. Vasculature: Mild atherosclerotic changes of the aorta and its major branches. Bones/joints: Right shoulder arthroplasty. Severe degenerative changes of the left glenohumeral joint. Moderate left shoulder effusion with intra-articular ossified bodies. Nondisplaced acute fractures of the left posterior 8th and 9th ribs. Nondisplaced acute fracture of the right posterior 11th rib. Right anterolateral 4th and 5th rib deformities which appear chronic. Multilevel spondylosis. Soft tissues: Unremarkable. Other findings: For findings pertaining to the abdomen and pelvis please see concurrent CT abdomen pelvis. IMPRESSION: Nondisplaced acute fractures of the left 8th-9th and right 11th ribs. No segmental fractures.
--- NOTE | 2024-01-30 21:48 | CT_ITS ---
PROCEDURE INFORMATION: Exam: CT Abdomen And Pelvis Without Contrast Exam date and time: 01/30/2024 9:59 PM Age: 78 years old Clinical indication: Injury or trauma; Fall; Blunt; Ruq; Additional info: Fall, ruq pain TECHNIQUE: Imaging protocol: Computed tomography of the abdomen and pelvis without contrast. Radiation optimization: All CT scans at this facility use at least one of these dose optimization techniques: automated exposure control; mA and/or kV adjustment per patient size (includes targeted exams where dose is matched to clinical indication); or iterative reconstruction. COMPARISON: CT CHEST WO CON 01/30/2024 9:56 PM FINDINGS: Heart: Mitral valve calcifications. Coronary arteries: Severe coronary artery calcifications. Liver: Hypodense lesion in hepatic segment 8 likely representing a simple cyst. Gallbladder and biliary ducts: Cholelithiasis without evidence of acute cholecystitis. Pancreas: Nonspecific cystic mass in the proximal pancreatic body measuring 4.3 x 3.1 cm (series 3 image 35) incompletely characterized on this noncontrast exam. Spleen: Unremarkable. Adrenal glands: Unremarkable. Kidneys and ureters: Unremarkable. No hydronephrosis. Stomach and bowel: Unremarkable. No obstruction. No mucosal thickening. Appendix: Unremarkable. Intraperitoneal space: No free air or free fluid. Vasculature: Mild atherosclerotic changes of the aorta and its major branches. Lymph nodes: Unremarkable. Urinary bladder: Unremarkable. Reproductive: Mild prostatomegaly. Bones/joints: Multilevel spondylosis. Chronic T12 and L1 vertebral body compression fractures s/p vertebroplasty. Soft tissues: Unremarkable. Other findings: For findings pertaining to the chest please see concurrent CT chest. IMPRESSION: No acute abdominopelvic abnormality.
--- NOTE | 2024-01-30 22:00 | PC.NURSE ---
pt neurologically unchanged. pt remains alert and oriented, able to follow all commands and responds appropriately.
[2024-01-30 22:30] VITALS: BP 120/83; PULSE 45; RESP 14; O2SAT 80
[2024-01-30 23:00] VITALS: BP 110/80; RESP 21
--- NOTE | 2024-01-30 23:00 | PC.NURSE ---
pt neuro status remains unchanged. pt remaind alert and oriented and able to follow all commands appropriately
[2024-01-30 23:28] LABS: Basophils # 0.1 K/mm3 (0-0.2); Basophils % 1.1 % (0.1-2.0); Eosinophils # 0.1 K/mm3 (0.0-0.4); Eosinophils % 1.2 % (0.1-12.0); Hematocrit 49.4 % (42.0-52.0); Hemoglobin 16.1 g/dL (14.1-18.0); Lymphocytes # 1.3 K/mm3 (0.7-4.5); Lymphocytes % 15.1 % (10-50); Mean Corpuscular HGB Conc 32.6 g/dL (31.8-35.4); Mean Corpuscular Hemoglobin 32.6 pg (27.0-31.2); Mean Corpuscular Volume 99.7 fl (80-94); Mean Platelet Volume 8.3 fl (7.4-10.4); Monocytes # 0.6 K/mm3 (0.1-1.0); Monocytes % 6.4 % (1.7-9.3); Neutrophils # 6.7 K/mm3 (1.8-7.8); Neutrophils % 76.1 % (37.0-80.0); Platelet Count 190 K/mm3 (142-424); Red Blood Count 4.96 M/mm3 (4.60-6.20); Red Cell Distribution Width 13.2 % (11.5-17.5); White Blood Count 8.8 K/mm3 (4.8-10.8)
[2024-01-30 23:34] LABS: INR 3.73 (0.9-1.1); Prothrombin Time 36.7 seconds (10.1-12.5)
[2024-01-30 23:40] LABS: Lipase 49 U/L (23-300)
[2024-01-30 23:53] LABS: Troponin I 0.01 ng/ml (0.00-0.034)
[2024-01-30] MEDS: PHYTONADIONE 10 MG in 0.9 % SODIUM CHLORIDE 50 ML 100 MG IV (23:58)
[2024-01-31 00:11] LABS: Free T4 (Free Thyroxine) 1.23 ng/dl (0.78-2.19)
[2024-01-31 00:12] LABS: Thyroid Stimulating Hormone 1.07 uIU/mL (0.465-4.68)
[2024-01-31 00:18] VITALS: BP 118/84; PULSE 98; RESP 16; TEMP 36.7; O2SAT 95
[2024-01-31 00:23] LABS: Alanine Aminotransferase 23 U/L (12-78); Albumin Level 3.5 g/dl (3.5-5.0); Albumin/Globulin Ratio 1.5 (1.1-1.8); Alkaline Phosphatase 120 U/L (38-126); Anion Gap 6.3 mEq/L (5-15); Aspartate Amino Transferase 42 U/L (17-59); Blood Urea Nitrogen 34 mg/dl (9-20); Calcium 9.4 mg/dl (8.4-10.2); Carbon Dioxide 37 mmol/L (22.0-30.0); Chloride 100 mmol/L (98-107); Creatinine Clearance Estimated 89 mL/min (50-200); Estimated Glomerular Filt Rate 82 ml/min (>60); GFR (African American) 99 ML/MIN (>60); Globulin 2.3 g/dL (1.3-3.2); Glucose 97 mg/dl (74-100); Potassium 4.3 mmoL/L (3.5-5.1); Sodium 139 mmol/L (136-145); Total Protein,Serum 5.8 g/dl (6.3-8.2)
--- NOTE | 2024-01-31 00:40 | PC.NURSE ---
pt left with EMS to . pt condition stable, neurologically A&Ox4. pt following commands appropriately.
--- NOTE | 2024-01-31 00:44 | PC.NURSE ---
pt remains neurologically unchanged. pt is alert and oriented x4. pt follows all commands and responds appropriately to questions asked.
[2024-01-31 13:14] LABS: HIV Combo NEGATIVE (Negative)
[2024-02-01 10:08] LABS: HCV Ab Non Reactive (Non Reactive)
== END 2024-01-31 00:40 | disposition short-term general hospital (02) ==
PROVIDERS: Emergency Provider Student in an Organized Health Care Education/Training Program
DX: R79.1 Abnormal coagulation profile (principal); S22.49XA Multiple fractures of ribs, unspecified side, initial encounter for closed fracture; S06.33AA Contusion and laceration of cerebrum, unspecified, with loss of consciousness status unknown, initial encounter; M54.2 Cervicalgia; M25.522 Pain in left elbow; M25.511 Pain in right shoulder; Z23 Encounter for immunization; W01.198A Fall on same level from slipping, tripping and stumbling with subsequent striking against other object, initial encounter; Y93.89 Activity, other specified; Y92.481 Parking lot as the place of occurrence of the external cause
CPT/HCPCS: 70450; 71045; 71250; 72125; 72170; 73030; 73070; 74176; 80053; 83690; 84439; 84443; 84484; 85025; 85610; 86803; 87389; 90471; 90715; 93005; 96365; 96374; 99291; J2270; J3430